=== PATIENT | male | born 2000 | race African-American/Black ===

== ENCOUNTER 2019-09-11 17:31 | Emergency (ER) | payer OTHER ==
[~2019-09-11] VITALS: Ht 165.1 cm; Wt 51.3 kg
[2019-09-11 17:32] VITALS: BP 114/65
[2019-09-11] MEDS ORDERED: TESSALON PERLE100 MG PO (19:13)
== END 2019-09-11 19:32 | disposition home or self-care (01) ==
LOC: ER 17:31
DX: J06.9 Acute upper respiratory infection, unspecified (principal)

== ENCOUNTER 2021-04-09 09:04 | Emergency (ER) | payer BC, OTHER ==
[~2021-04-09] VITALS: Ht 165.1 cm; Wt 55.8 kg
[~2021-04-09 09:04] MED LIST: TESSALON PERLE100 MG PO
[2021-04-09 09:54] LABS: ABSOLUTE NEUTROPHILS 9.5 thou/uL (1.4-8.2); BASOPHILS 0.3 % (0.0-2.0); EOSINOPHILS 0.5 % (0.0-3.0); HEMOGLOBIN 14.6 gm/dL (14.0-18.0); LYMPHOCYTES 6.8 % (24.0-44.0); MCH 25.8 pg (26.0-34.0); MCHC 33.1 g/dL (28.0-37.0); MCV 77.9 fL (80.0-100.0); MONOCYTES 7.5 % (1.0-8.0); PLATELET COUNT 319 thou/uL (150-400); POLYS 84.9 % (36.0-66.0); RBC 5.65 mil/uL (4.50-6.00); RDW 14.1 % (10.5-14.5); WBC 11.2 thou/uL (4.0-11.0)
[2021-04-09 10:05] LABS: ANION GAP 12 mmol/L (7-16); BUN 16 mg/dL (7-18); CALCIUM 9.4 mg/dL (8.5-10.1); CHLORIDE 104 mmol/L (98-107); CO2 26 mmol/L (21-32); CREATININE 1.2 mg/dL (0.7-1.3); GLUCOSE 120 mg/dL (74-106); POTASSIUM 3.9 mmol/L (3.5-5.1); SODIUM 142 mmol/L (136-145)
[2021-04-09 10:16] LABS: ALBUMIN 4.7 g/dL (3.4-5.0); SGOT 23 U/L (15-37); SGPT 32 U/L (16-63); TOTAL BILIRUBIN 0.7 mg/dL (0.2-1.0); TROPONIN-I <0.06 ng/mL (<0.06)
--- NOTE | 2021-04-09 11:00 | EKG ---
[address] [place] [address] ELECTROCARDIOGRAM REPORT Name: ÁNGELLORRIE Room #: [facility] MESAMaydaMayda#: [id number] Admission: 04/09/21 Attend Phys: Discharge: Date of : 89 Report #: [id number] [facility] ED Test Date: 2021-04-09 Test Time: 09:12:07 Pat Name: LORRIE NEAL Department: Room: Gender: Respiratory Manager: : 2000 Requested By: Curt Greer Order Number: [id number] MD: Reagan Starr Measurements Intervals [place] Rate: 118 P: 66 OR: 159 QRS: 29 QRSD: 84 T: 57 QT: 323 QTc: 453 Interpretive Statements Sinus tachycardia No previous ECG available for comparison Electronically Signed On 04-09-2021 11:00:13 CDT by Reagan Starr [email or web address] <ELECTRONICALLY SIGNED> By: Reagan Starr MD 04/09/21 1100 0912 0912 Reagan Starr MD /EPI
[2021-04-09 11:08] VITALS: BP 124/66
[2021-04-09] MEDS ORDERED: PROAIR HFA8.5 GM INH (11:08)
[2021-04-09] MEDS ORDERED: PREDNISONE50 MG PO (11:08)
== END 2021-04-09 11:08 | disposition home or self-care (01) ==
LOC: ER 09:04
PROVIDERS: Emergency Medicine
DX: J45.909 Unspecified asthma, uncomplicated (principal); Z20.822 Contact with and (suspected) exposure to COVID-19